=== PATIENT | male | born 2000 | race Caucasian/White ===

== ENCOUNTER 2021-12-23 21:03 | Emergency (ER) | payer SELFPAY ==
[~2021-12-23] VITALS: Ht 182.9 cm; Wt 80.9 kg
[2021-12-23 21:04] VITALS: BP 136/75
[2021-12-23] MEDS ORDERED: RIZA10TA2 PO (21:10)
[2021-12-23] MEDS ORDERED: TOPI50TA9 PO (21:12)
== END 2021-12-24 00:36 | disposition left against medical advice (07) ==
LOC: M ED 21:03
DX: Z53.21 Procedure and treatment not carried out due to patient leaving prior to being seen by health care provider (principal)

== ENCOUNTER → 2022-09-04 | Outpatient (CLI) | payer OTHER ==
[~2022-09-04] MED LIST: RIZA10TA2 PO; TOPI-254 PO
== END ==
LOC: M RAD 10:27
PROVIDERS: ATTEND Physician Assistant
DX: R30.0 Dysuria (principal)

== ENCOUNTER → 2022-11-24 | Outpatient (CLI) | payer OTHER ==
[~2022-11-24] MED LIST changes: +ISOVUE-300 61% 100ML VIAL As Ordered ONE; +LIDOCAINE 1% MDV 20ML VIAL As Ordered ONE; +PROHANCE 279.3MG/ML 5ML VIAL As Ordered ONE
== END ==
LOC: M RAD 14:35
PROVIDERS: ATTEND Physician Assistant Surgical
DX: M75.21 Bicipital tendinitis, right shoulder (principal)
CPT/HCPCS: 23350; 73223; 77002; A9576; Q9967